=== PATIENT | female | born 1975 | race Hispanic/Latino ===

== ENCOUNTER 2017-06-15 17:47 | Emergency (ER) | payer SELFPAY ==
[~2017-06-15] VITALS: Ht 167.6 cm; Wt 96.7 kg
[~2017-06-15 17:47] MED LIST: MACROBID100 MG PO; PYRIDIUM100 MG PO
[2017-06-15 18:55] LABS: HEMATOCRIT 38.8 % (36.0-46.0); HEMOGLOBIN 13.6 G/DL (11.9-15.5); MCHC 35.1 G/DL (30.0-36.0); MCV 88.4 FL (83-99); PLATELET COUNT 189 K/uL (156-360); RBC DIS.WIDTH-CV 11.9 % (11.8-14.6); RBC DIS.WIDTH-SD 38.5 % (39-53); RED BLOOD COUNT 4.39 M/uL (3.80-5.20); WHITE BLOOD COUNT 6.9 K/uL (4.1-10.2)
[2017-06-15 18:58] LABS: APPEARANCE SL.HAZY ((CLEAR)); BILIRUBIN NEGATIVE; BLOOD MODERATE; COLOR YELLOW ((YELLOW)); GLUCOSE (STRIP) NEGATIVE; KETONES 20; LEUKOCYTES NEGATIVE; NITRITE NEGATIVE; PROTEIN (STRIP) 30; SPECIFIC GRAVITY 1.025 (1.000-1.030); UROBILINOGEN 0.2 MG/DL (0.2-1.0)
[2017-06-15 19:06] LABS: BACTERIA NONE SEEN /HPF; EPITHELIAL CELLS 1+ /HPF; MUCUS 1+ /LPF; UCUL ADDED? NO; WHITE BLOOD CELLS 0-5 /HPF (0-5)
[2017-06-15 19:06] LABS: ALBUMIN 4.1 g/dL (3.2-4.8)
[2017-06-15 19:07] LABS: CHLORIDE 105 mEq/L (99-109); POTASSIUM 3.2 mEq/L (3.7-5.4); SODIUM 140 mEq/L (136-147)
[2017-06-15 19:09] LABS: GLUCOSE 97 mg/dL (70-99); TOTAL PROTEIN 7.1 g/dL (6.4-8.3)
[2017-06-15 19:11] LABS: TOTAL BILIRUBIN 0.3 mg/dL (0.0-1.0)
[2017-06-15 19:12] LABS: ALKALINE PHOSPHATASE 94 IU/L (3-129)
[2017-06-15 19:13] LABS: CREATININE 0.7 mg/dL (0.6-1.3); GFR ESTIMATE (CALCULATED) > 59 mL/min/
[2017-06-15 19:14] LABS: AST (GOT) 17 IU/L (2-34); UREA NITROGEN (BUN) 6 mg/dL (9-23)
[2017-06-15 19:15] LABS: ALT (GPT) 14 IU/L (3-49)
[2017-06-15 19:26] LABS: QUANTITATIVE HCG < 4.0 MIU/ML
[2017-06-15 22:08] LABS: C DIFF TOXIN NEGATIVE (NEGATIVE)
[2017-06-15] MEDS ORDERED: ZOFRAN ODT8 MG PO (23:23)
[2017-06-15] MEDS ORDERED: BENTYL20 MG PO (23:23)
[2017-06-16 00:02] VITALS: BP 110/84
[2017-06-17] MEDS ORDERED: CIPRO500 MG PO (18:21)
[2017-06-17] MEDS ORDERED: NORCO 5/3251 TABLET PO (18:21)
== END 2017-06-16 00:03 | disposition home or self-care (01) ==
LOC: EME 17:47
PROVIDERS: Physician Assistant
DX: R11.0 Nausea (principal); R10.9 Unspecified abdominal pain; R19.7 Diarrhea, unspecified; E87.6 Hypokalemia
CPT/HCPCS: 74022; 80053; 81003; 84702; 85027; 87493; 87506; 99281; 99284; J1885

== ENCOUNTER 2017-06-17 13:33 | Emergency (ER) | payer SELFPAY ==
[~2017-06-17] VITALS: Ht 167.6 cm; Wt 96.0 kg
[~2017-06-17 13:33] MED LIST changes: +BENTYL20 MG PO; +ZOFRAN ODT8 MG PO
[2017-06-17 14:12] LABS: HEMATOCRIT 38.7 % (36.0-46.0); HEMOGLOBIN 13.4 G/DL (11.9-15.5); MCH 31.2 PG (29.0-34.0); MCHC 34.6 G/DL (30.0-36.0); PLATELET COUNT 197 K/uL (156-360); RBC DIS.WIDTH-CV 12.1 % (11.8-14.6); RBC DIS.WIDTH-SD 39.8 % (39-53); WHITE BLOOD COUNT 5.3 K/uL (4.1-10.2)
[2017-06-17 14:24] LABS: ALBUMIN 3.9 g/dL (3.2-4.8); CHLORIDE 104 mEq/L (99-109)
[2017-06-17 14:25] LABS: SODIUM 143 mEq/L (136-147)
[2017-06-17 14:27] LABS: GLUCOSE 83 mg/dL (70-99); TOTAL PROTEIN 6.9 g/dL (6.4-8.3)
[2017-06-17 14:30] LABS: ALKALINE PHOSPHATASE 87 IU/L (3-129); CREATININE 0.7 mg/dL (0.6-1.3); GFR ESTIMATE (CALCULATED) > 59 mL/min/; POTASSIUM 3.9 mEq/L (3.7-5.4); TOTAL BILIRUBIN 0.2 mg/dL (0.0-1.0)
[2017-06-17 14:32] LABS: UREA NITROGEN (BUN) 6 mg/dL (9-23)
[2017-06-17 14:33] LABS: ALT (GPT) 24 IU/L (3-49)
[2017-06-17 14:34] LABS: LIPASE 18 U/L (1.0-51.0)
[2017-06-17 14:44] LABS: QUANTITATIVE HCG < 4.0 MIU/ML
[2017-06-17 14:46] LABS: AST (GOT) 29 IU/L (2-34)
[2017-06-17 16:08] LABS: APPEARANCE SL.HAZY ((CLEAR)); BILIRUBIN NEGATIVE; BLOOD SMALL; COLOR YELLOW ((YELLOW)); GLUCOSE (STRIP) NEGATIVE; KETONES 80; LEUKOCYTES NEGATIVE; NITRITE NEGATIVE; PROTEIN (STRIP) 30; SPECIFIC GRAVITY 1.025 (1.000-1.030); UROBILINOGEN 0.2 MG/DL (0.2-1.0)
[2017-06-17 16:21] LABS: BACTERIA RARE /HPF; CALCIUM OXALATE CRYSTALS 1+ /HPF; EPITHELIAL CELLS 3+ /HPF; HYALINE CASTS 0-5 /LPF; MUCUS 1+ /LPF; UCUL ADDED? NO; WHITE BLOOD CELLS 0-5 /HPF (0-5)
[2017-06-17 16:44] LABS: C DIFF TOXIN ND (NEGATIVE)
[2017-06-17] MEDS ORDERED: NORCO 5/3251 TABLET PO (18:21)
[2017-06-17] MEDS ORDERED: CIPRO500 MG PO (18:21)
[2017-06-17 18:32] VITALS: BP 129/80
== END 2017-06-17 18:33 | disposition home or self-care (01) ==
LOC: EME 13:33
PROVIDERS: Physician Assistant
DX: K52.9 Noninfective gastroenteritis and colitis, unspecified (principal); Z90.49 Acquired absence of other specified parts of digestive tract
CPT/HCPCS: 74177; 80053; 81003; 83690; 84702; 85027; 87493; 87506; 99281; 99285; J3010; J7030